=== PATIENT | male | born 1990 | race Caucasian/White ===

== ENCOUNTER 2018-06-27 16:13 | Emergency (ER) | payer OTHER ==
[~2018-06-27 16:13] MED LIST: AMOX500 PO; Bactrim Ds Tab1 EACH PO; CETI10 PO; CYCL10 PO; Cleocin HCl300 MG PO; DIPH50 PO; HYDACE5 PO; IBUP800 PO; LORA10ER PO; NAPR500 PO; Norco 5-325 Ta1 EACH PO; PENVK500; PRED5 PO; Percocet 5-3251 EACH PO
== END 2018-06-27 17:28 | disposition left against medical advice (07) ==
LOC: ER 16:13
DX: Z53.21 Procedure and treatment not carried out due to patient leaving prior to being seen by health care provider (principal)

== ENCOUNTER 2020-11-13 14:37 | Observation (INO) | payer OTHER ==
[~2020-11-13] VITALS: Ht 177.8 cm; Wt 79.2 kg
[2020-11-13 15:06] LABS: IMMATURE GRAN PERCENT AUTO 1 % (0-1); Mean Corpuscular HGB 30.4 pg (26.0-34.0); RDW Coefficient Variation 12.7 % (11.7-14.2)
[2020-11-13 15:13] LABS: BASOPHILS ABSOLUTE AUTO 0.03 K/mm3 (0.00-0.23); BASOPHILS PERCENT AUTO 0 % (0-2); EOSINOPHILS ABSOLUTE AUTO 0.03 K/mm3 (0.00-0.68); EOSINOPHILS PERCENT AUTO 0 % (0-6); Hematocrit 35.9 % (37.0-53.0); Hemoglobin 12.6 g/dL (13.5-17.5); IMMATURE GRAN ABSOLUTE AUTO 0.09 K/mm3 (0.00-0.10); LYMPHOCYTES ABSOLUTE AUTO 1.98 K/mm3 (0.84-5.20); LYMPHOCYTES PERCENT AUTO 12 % (21-46); MONOCYTES PERCENT AUTO 9 % (4-13); Mean Corpuscular HGB Conc 35.1 g/dL (31.5-36.5); Mean Corpuscular Volume 87 fL (80-100); Mean Platelet Volume 10.6 fL (9.1-12.4); NEUTROPHILS ABSOLUTE AUTO 13.17 K/mm3 (1.96-9.15); NEUTROPHILS PERCENT AUTO 78 % (41-73); RDW Standard Deviation 40.2 fL (35.1-46.3); Red Blood Cell Count 4.14 M/mm3 (4.30-5.90)
[2020-11-13 15:23] LABS: Alanine Aminotransfer (ALT/SGP 66 U/L (12-78); Albumin, Blood 3.8 g/dL (3.4-5.0); Albumin/Globulin Ratio 1.3 (0.8-1.8); Alk Phos 74 U/L (50-136); Anion Gap 6 mmol/L (6-16); Aspartate Aminotrans (AST/SGOT 181 U/L (12-37); Blood Urea Nitrogen 12 mg/dL (8-24); Bun/Creatinine Ratio 13.2 (12.0-20.0); CO2, Blood 26 mmol/L (21-32); Calcium, Blood 8.7 mg/dL (8.5-10.1); Chloride, Blood 113 mmol/L (98-108); Creatinine, Blood 0.91 mg/dL (0.60-1.20); Glomerular Filtration Rate >60 (60-); Glucose, Blood 94 mg/dL (70-99); Potassium, Blood 3.9 mmol/L (3.5-5.5); Sodium, Blood 145 mmol/L (136-145); Total Protein, Blood 6.8 g/dL (6.4-8.2)
[2020-11-13 15:31] LABS: Platelet Count 167 K/mm3 (150-400)
[2020-11-13 16:53] LABS: Source, Urine Clean Catch
[2020-11-13 16:56] LABS: Appearance, Urine Hazy (Clear); Bilirubin, Urine Neg (Neg); Blood, Urine 4+ (Neg); Color, Urine Yellow (P-Yellow); Glucose Qualitative, Urine Neg (Neg); Ketones, Urine 1+ (Neg); Leukocyte Esterase, Urine 3+ (Neg); Nitrite, Urine Neg (Neg); Protein, Urine 1+ (Neg); Urobilinogen, Urine NORM (Normal)
[2020-11-13 17:05] LABS: Bacteria Many /hpf; Squamous Epithelial Cells Mod /hpf (Few); White Blood Cells, Urine 25-50 /hpf (0-5)
--- NOTE | 2020-11-13 18:45 | NUR ---
Arrival to unit Received report from Doris, patient arrived to unit at approx. 1845 via w/c with popsicle and water in hand. Self transferred to bed. Settled to room. Patient requesting to have visitor. Unfortunately, visitor policy explained and patient was not happy. Stating "I will check myself out of here" if unable to get visitor. Report handed to oncoming SHELBIE Cabrales.
--- NOTE | 2020-11-13 22:37 | NUR ---
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 REMOVED IV. PT REMOVED TELE. IRIS FILLED OUT. PT ESCORTED OUT VIA WHEELCHAIR.
== END 2020-11-13 22:16 | disposition left against medical advice (07) ==
LOC: ER 14:37 → MEDS 14:38
PROVIDERS: Emergency Medicine; Physician Assistant; ADMIT Internal Medicine
DX: M62.82 Rhabdomyolysis (principal); F11.90 Opioid use, unspecified, uncomplicated; F15.90 Other stimulant use, unspecified, uncomplicated; F17.210 Nicotine dependence, cigarettes, uncomplicated; I10 Essential (primary) hypertension
CPT/HCPCS: 80053; 81001; 82550; 82553; 85025; 87086; 93005; 93010; 99285-25; G0378; J7030

== ENCOUNTER 2021-03-17 21:53 | Emergency (ER) | payer OTHER ==
[~2021-03-17] VITALS: Ht 182.9 cm; Wt 77.1 kg
[2021-03-17 22:30] LABS: Calcium, Ionized (POC) 1.18 mmol/L (1.10-1.46); Chloride (POC) 99 mmol/L (98-108); Creatinine (POC) 1.1 mg/dL (0.8-1.3); Glucose (ISTAT POC) 89 mg/dL (70-99); Hemoglobin (POC) 11.2 g/dL (13.5-17.5); Sodium (POC) 140 mmol/L (135-148); Total CO2 (POC) 30 mmol/L (21-32)
== END 2021-03-17 22:58 ==
LOC: ER 21:53
PROVIDERS: Emergency Medicine
DX: R10.9 Unspecified abdominal pain (principal); F17.210 Nicotine dependence, cigarettes, uncomplicated
CPT/HCPCS: 80047; 85014; 99284; J7030

== ENCOUNTER 2022-02-03 04:37 | Emergency (ER) | payer OTHER ==
[~2022-02-03] VITALS: Ht 210.8 cm; Wt 86.6 kg
== END 2022-02-03 07:28 | disposition home or self-care (01) ==
LOC: ER 04:37
DX: S61.210A Laceration without foreign body of right index finger without damage to nail, initial encounter (principal); F17.210 Nicotine dependence, cigarettes, uncomplicated; W26.0XXA Contact with knife, initial encounter
CPT/HCPCS: 12001; 99282

== ENCOUNTER 2022-09-19 22:50 | Emergency (ER) | payer OTHER ==
[~2022-09-19] VITALS: Ht 180.3 cm; Wt 83.9 kg
[~2022-09-19 22:50] MED LIST changes: +NARCAN4 M1
[2022-09-19 22:54] VITALS: BP 139/84
[2022-09-19] MEDS ORDERED: Mupirocin22 GM TOP (23:47)
[2022-09-19] MEDS ORDERED: CEPH500 PO (23:47)
[2022-09-19] MEDS ORDERED: Bactrim Ds Tab1 EACH PO (23:47)
== END 2022-09-19 23:52 | disposition home or self-care (01) ==
LOC: ER 22:50
DX: L03.213 Periorbital cellulitis (principal); L03.313 Cellulitis of chest wall; F17.210 Nicotine dependence, cigarettes, uncomplicated; Z91.018 Allergy to other foods; Z79.899 Other long term (current) drug therapy
CPT/HCPCS: A9270

== ENCOUNTER 2024-08-13 19:03 | Emergency (ER) | payer OTHER ==
[~2024-08-13] VITALS: Ht 182.9 cm; Wt 84.4 kg
[~2024-08-13 19:03] MED LIST changes: +BACTRIM DS TAB1 EAC1 PO; +CEPH500 PO; +Mupirocin22 GM TOP
[2024-08-13 19:40] LABS: BASOPHILS ABSOLUTE AUTO 0.05 K/mm3 (0.00-0.23); BASOPHILS PERCENT AUTO 0 % (0-2); EOSINOPHILS ABSOLUTE AUTO 0.11 K/mm3 (0.00-0.68); EOSINOPHILS PERCENT AUTO 1 % (0-6); Hematocrit 42.1 % (37.0-53.0); Hemoglobin 15.4 g/dL (13.5-17.5); IMMATURE GRAN ABSOLUTE AUTO 0.06 K/mm3 (0.00-0.10); IMMATURE GRAN PERCENT AUTO 0 % (0-1); LYMPHOCYTES ABSOLUTE AUTO 2.68 K/mm3 (0.84-5.20); LYMPHOCYTES PERCENT AUTO 17 % (21-46); MONOCYTES PERCENT AUTO 7 % (4-13); Mean Corpuscular HGB 31.8 pg (26.0-34.0); Mean Corpuscular HGB Conc 36.6 g/dL (31.5-36.5); Mean Corpuscular Volume 87 fL (80-100); NEUTROPHILS PERCENT AUTO 75 % (41-73); Platelet Count 278 K/mm3 (150-400); RDW Standard Deviation 38.6 fL (35.1-46.3); Red Blood Cell Count 4.85 M/mm3 (4.30-5.90)
[2024-08-13 20:04] LABS: Albumin, Blood 4.1 g/dL (3.4-5.0); Albumin/Globulin Ratio 1.4 (0.8-1.8); Bilirubin, Total 0.8 mg/dL (0.1-1.0); Bun/Creatinine Ratio 29.9 (12.0-20.0); Calcium, Blood 8.2 mg/dL (8.5-10.1); Creatinine, Blood 1.07 mg/dL (0.60-1.20); Potassium, Blood 3.6 mmol/L (3.5-5.5); Total Protein, Blood 7.1 g/dL (6.4-8.2)
[2024-08-13 22:00] VITALS: BP 138/75
[2024-08-13] MEDS ORDERED: Ibuprofen 600 MG Tab PO ONE (22:55)
[2024-08-14] MEDS ORDERED: Ondansetron HCl 2 MG / ML 2ML Vial IV ONE (00:10)
[2024-08-14] MEDS ORDERED: RX Prepack 2 Tabs Ondansetron ODT 4MG UD ONE (00:10)
[2024-08-14] MEDS ORDERED: PANT40 PO (00:11)
[2024-08-14] MEDS ORDERED: ALMACONE SUSPE355 ML PO (00:11)
[2024-08-14] MEDS ORDERED: Mag Hydrox/AL Hydrox/Simeth 30 ML UDC PO ONE (00:15)
[2024-08-14] MEDS ORDERED: Pantoprazole Sodium 40 MG Tab PO ONE (00:15)
[2024-08-14] MEDS ORDERED: Ondansetron 4 MG SoluTab SL ONE (00:15)
[2024-08-14] MEDS ORDERED: Pantoprazole Sodium 40 MG Injection IV ONE (00:15)
== END 2024-08-14 00:49 | disposition home or self-care (01) ==
LOC: ER 19:03
PROVIDERS: Student in an Organized Health Care Education/Training Program
DX: R11.2 Nausea with vomiting, unspecified (principal); R10.13 Epigastric pain; E86.0 Dehydration; R74.01 Elevation of levels of liver transaminase levels; F17.210 Nicotine dependence, cigarettes, uncomplicated; Z91.018 Allergy to other foods; Z59.89 Other problems related to housing and economic circumstances
CPT/HCPCS: 74176; 80053; 83690; 85025; 99284-25; A9270